=== PATIENT | female | born 1955 | race Caucasian/White ===

== ENCOUNTER 2020-12-18 06:53 | Observation (INO) ==
--- NOTE | 2020-12-03 14:43 | PAT Medication Instructions ---
Medication Instructions Date of Service December 03, 2020 Home Medications cetirizine [Zyrtec] 10 mg PO QAM diclofenac sodium [Voltaren] 2 g TOPICAL QID PRN folic acid 3 mg PO QAM golimumab [Simponi ARIA] 12.5 mg IV UD hydroxychloroquine 300 mg PO HS latanoprost 1 drp OPHTHALMIC (EYE) PM meloxicam 7.5 - 15 mg PO BID PRN methotrexate sodium [Methotrexate (Anti-Rheumatic)] See Rx Instructions .ROUTE .COMPLEX rosuvastatin 5 mg PO UD Continue as directed rosuvastatin 5 mg PO UD ASK your surgeon for instructions meloxicam 7.5 - 15 mg PO BID PRN ASK your prescriber and surgeon golimumab [Simponi ARIA] 12.5 mg IV UD hydroxychloroquine 300 mg PO HS methotrexate sodium [Methotrexate (Anti-Rheumatic)] See Rx Instructions .ROUTE .COMPLEX STOP taking 24 hours before surgery diclofenac sodium [Voltaren] 2 g TOPICAL QID PRN DO NOT take the morning of surgery cetirizine [Zyrtec] 10 mg PO QAM folic acid 3 mg PO QAM Take evening before surgery latanoprost 1 drp OPHTHALMIC (EYE) PM Other Notes If you have any questions please call us at [phone] or [phone] or [phone] or [phone]
--- NOTE | 2020-12-05 12:19 | Anesthesiology Consultation ---
Date of Service December 05, 2020 Assessment & Plan (1) Encounter for pre-operative examination: - COVID screening: Per assessment on 12/05: Travel screen negative, no known COVID-19 positive contacts or current COVID-19 related symptoms. Patient vaccinated. Surgeon arranging preop COVID testing. Awaiting results. - Cardiology office visit (10/30/20): "Despite her severe arthritis she remains physically active. She has been doing her elliptical service trainer 45 minutes a day. She has no anginal symptoms and no signs or symptoms of heart failure. I see no cardiac contraindication to proceeding on with the planned orthopedic procedure." Chart Review Chart Review: Acceptable Risk for Surgery (pending surgeon-ordered PCP clearance) and Patient seen in Pre Admission Testing Teaching & Discussion Pre-Anesthesia Teaching/Discussion Notes: Instructed NPO after midnight before surgery,except medications with 15 cc of water. Medication instructions provided according to the PAT guidelines. History Surgery Operation Date: 12/18/20 09:15 Proposed Procedures p Right Total Knee Arthroplasty - Tim Lawrence DO Height/Weight Height: 5 ft 5 in Weight: 79.4 kg Allergies Allergy/AdvReac Type Severity Reaction Status Date / Time No Known Allergies Allergy Verified 11/29/20 11:13 Medications Home Medications Medication Instructions Recorded Confirmed Last Taken cetirizine [Zyrtec] 10 mg PO QAM 11/29/20 11/29/20 Unknown diclofenac sodium [Voltaren] 2 g TOPICAL QID PRN 11/29/20 11/29/20 Unknown folic acid 3 mg PO QAM 11/29/20 11/29/20 Unknown golimumab [Simponi ARIA] 12.5 mg IV UD 11/29/20 11/29/20 Unknown hydroxychloroquine 300 mg PO HS 11/29/20 11/29/20 Unknown latanoprost 1 drp OPHTHALMIC (EYE) PM 11/29/20 11/29/20 Unknown meloxicam 7.5 - 15 mg PO BID PRN 11/29/20 11/29/20 Unknown methotrexate sodium [Methotrexate See Rx Instructions .ROUTE .COMPLEX 11/29/20 11/29/20 Unknown (Anti-Rheumatic)] rosuvastatin 5 mg PO UD 11/29/20 11/29/20 Unknown Past Medical History Medical History Hyperlipidemia Osteoarthritis Rheumatoid arthritis Hands Exercise / Class Metabolic Activity II 4-5 Yardwork/Stairs/Walk up hill (one FS (no CP, no SOB)) Past Surgical History Surgical History History of carpal tunnel surgery of right wrist History of facelift Hx of arthroscopy of right knee Hx of bilateral cataract extraction Hx of section Hx of colonoscopy Hx of detached retina repair left Hx of tonsillectomy Past Anesthesia History No Hx of Anesthesia Complications (except PONV x1) and No Family Hx of Anesthesia Complications History of PONV History of PONV (x1 single episode) and Hx of Motion Sickness (remote childhood hx) Social History Smoking Status: Never smoker Do You Dip or Chew Tobacco: No Hx Alcohol Use: No Hx Substance Use: No substance use type: does not use Review of Systems + snoring. No witnessed apnea events. Patient denies chest pain, shortness of breath, dyspnea on exertion, fever, chills, cough, wheezing, palpitations. Physical Exam Vital Signs VITALS BP 133/80 P 78 TEMP 98.3 SP02 98%RA RESP 16 PHYSICAL Full cervical extension range of motion. Full TMJ range of motion. TMD 3.5 finger breaths Mallampati Score 3 Dentition: intact Lungs: clear throughout to auscultation Cardiac: regular rate and rhythm, no murmurs noted Spine: normal Carotid arteries: negative bruit Extremities: no edema Lab Results Anesthesia Preop Results Results Anesthesia Widget: WBC 4.59 K/uL (4.8-10.8) L 12/05/20 Hgb 12.9 g/dL (12.0-16.0) 12/05/20 Hct 37.5 % (37-47) 12/05/20 Plt 221 K/uL (130-400) 12/05/20 Na 140 mmol/L (136-145) 12/05/20 K 4.1 mmol/L (3.5-5.1) 12/05/20 Cl 109 mmol/L (98-107) H 12/05/20 CO2 26 mmol/L (21-32) 12/05/20 BUN 20 mg/dl (7-18) H 12/05/20 Creat 0.63 mg/dl (0.6-1.2) 12/05/20 Glucose Level 102 mg/dl (70-99) H 12/05/20 PT 10.1 Seconds (9.0-12.0) 12/05/20 PTT 23.9 Seconds (21.0-31.0) 12/05/20 INR 1.0 (0.9-1.1) 12/05/20 HA1c 5.9 % (4.5-5.6) H 12/05/20 Urine Color Yellow 12/05/20 Urine Appearance Clear (Clear) 12/05/20 Urine pH 5.5 (4.5-7.5) 12/05/20 Urine Specific [place] 1.019 (1.000-1.030) 12/05/20 Urine Protein Negative (Negative) 12/05/20 Urine Glucose (UA) Negative (Negative) 12/05/20 Urine Ketones Negative (Negative) 12/05/20 Urine Blood Negative (Negative) 12/05/20 Urine Nitrite Negative (Negative) 12/05/20 Urine Bilirubin Negative (Negative) 12/05/20 Urine Urobilinogen Negative (Negative) 12/05/20 Urine Leukocyte Esterase Trace (Negative) H 12/05/20 Urine WBC (Auto) 1-5 /hpf (0-5) 12/05/20 Urine RBC (Auto) 0-4 /hpf (0-4) 12/05/20 Urine Hyaline Casts (Auto) 0 /lpf (0-5) 12/05/20 Urine Epithelial Cells (Auto) 10-20 /lpf (0-5) H 12/05/20 Urine Bacteria (Auto) Negative (Negative) 12/05/20 Blood Type A Negative 12/05/20 Antibody Screen NEGATIVE 12/05/20 Lab Comments: Preop testing to be forwarded to PCP for continuity of care. Testing Electrocardiogram Date: 10/30/20 Findings: + NSR @ (72) Chest X-Ray Date: 12/05/20 Findings: + NAD Echocardiogram Date: 10/30/20 EF 55%. Borderline LVH. Sclerotic changes involving aortic and mitral valve leaflets. Trace to at most mild NV/TI. No regional wall motion abnormalities. Stress Test Date: 06/25/17 Type: exercise Negative ECG stress test 112% MPHR. 12.8 METS. No chest pain associated with exertion. No cardiac arrhythmia precipitated by exercise.
--- NOTE | 2020-12-16 22:18 | History & Physical Report ---
Date of Service December 18, 2020 Assessment & Plan (1) Degenerative joint disease of knee, right: I have indicated the patient for right total knee replacement. The risks, benefits and complications of surgery were explained to the patient which include but not limited to infection, acute blood loss, DVT/PE, injury to nerves, vessels, bone, soft tissue, arthrofibrosis, chronic pain, failure of the prosthesis, knee dislocation, leg length discrepancy, need for additional surgery, cardiac and pulmonary events and . The patient wished to proceed with surgery and informed consent was obtained at this time. We will plan for 81mg ASA BID post-operatively for DVT prophylaxis. Upon discharge the patient will be discharged home with home health services. Appropriate clearances by PCP, cardiology and rheum recs were obtained. History of Present Illness Chief Complaint: Right knee pain/DJD Primary Care Provider: Huey Noble The patient is a 65 year old female who presents with complaints of severe right knee pain and DJD. The patient has failed outpatient conservative treatments to this point which included NSAIDs, IA corticosteroid and DAMON injections, home exercise/walking program. The patient's pain and limited function have progressed to the point where they severely hinder their activities of daily living and they no longer tolerate exercise programs. They are requesting to proceed with total knee replacement surgery. Allergies Allergy/AdvReac Type Severity Reaction Status Date / Time No Known Allergies Allergy Verified 12/18/20 07:11 Home Medications Medication Instructions Recorded Confirmed Type cetirizine [Zyrtec] 10 mg PO QAM 11/29/20 12/18/20 History diclofenac sodium [Voltaren] 2 g TOPICAL QID PRN 11/29/20 12/18/20 History folic acid 3 mg PO QAM 11/29/20 12/18/20 History golimumab [Simponi ARIA] 12.5 mg IV UD 11/29/20 12/18/20 History hydroxychloroquine 300 mg PO HS 11/29/20 12/18/20 History latanoprost 1 drp OPHTHALMIC (EYE) PM 11/29/20 12/18/20 History meloxicam 7.5 - 15 mg PO BID PRN 11/29/20 12/18/20 History methotrexate sodium [Methotrexate See Rx Instructions .ROUTE .COMPLEX 11/29/20 12/18/20 History (Anti-Rheumatic)] rosuvastatin 5 mg PO UD 11/29/20 12/18/20 History multivitamin 1 tab PO DAILY 12/18/20 12/18/20 History omega-3 fatty acids-vitamin E 1 cap PO DAILY 12/18/20 12/18/20 History [Fish Oil] Past Med/Surg History Medical History Hyperlipidemia Osteoarthritis Rheumatoid arthritis Hands Surgical History History of carpal tunnel surgery of right wrist History of facelift Hx of arthroscopy of right knee Hx of bilateral cataract extraction Hx of section Hx of colonoscopy Hx of detached retina repair left Hx of tonsillectomy Social History Smoking Status: Never smoker Second Hand Exposure: No; Do You Dip or Chew Tobacco: No; Tobacco Cessation Education Requested by Patient: No Hx Alcohol Use: No Hx Substance Use: No Preferred Language: Mongolian Communication Ability: Effective Vehicle Service Attendant Required: No Beliefs That Will Affect Care: None Current Living Situation: Spouse Other Information That Helps Us Care for You: No Feels Safe at Home: Yes Safety Concerns: Feels Safe At This Time Assistive Devices: Glasses Review of Systems Review of Systems: All systems reviewed & are unremarkable except as noted in HPI & below Constitutional: as per Subjective / HPI Physical Exam Physical Exam: RLE NVSI +EHL/FHL/TA/GS SILT grossly, +2 DP pulse, compartments soft NT, limited painful ROM of the knee, 0-115 degrees of flexion, +crepitus. Constitutional: WD/WN, vitals as above Eyes: PERRL, conjunctivae normal, anicteric sclerae ENMT: external ear and nose normal, oropharynx normal Neck: trachea midline, no thyromegaly Respiratory: normal respiratory effort, lungs clear to auscultation Cardiovascular: RRR, no murmur, no edema Gastrointestinal (Abdomen): normal bowel sounds, soft, nontender, no hepatosplenomegaly Musculoskeletal: no cyanosis or clubbing, extremities motor strength 5/5 Skin: no rashes, warm and dry Neurologic: patellar DTR's 2+ bilat, sensation intact Psychiatric: A+Ox3, euthymic affect Lymphatic: no cervical or axillary lymphadenopathy Results & Data Results & Data ([place]) Diagnostic Findings Multiple views of the knee demonstrates severe tricompartmental DJD with complete loss of the medial joint space. +osteophytes, +sclerosis, +subchondral cysts.
[~2020-12-18 06:53] MED LIST: ACETAMINOPHEN 500 MG TAB PO SCH; BUPIVACAINE 0.25% 30 ML VIAL ONE; BUPIVACAINE 0.5 % 5 MG/1 ML PF 10ML VIAL ONE; CeleBREX 200 MG CAP PO SCH; EPINEPHrine INJ 1 MG/ML AMP ONE; FAMOTIDINE 20 MG TAB PO SCH; GENERAL ORDER PROBLEM SCH; LR 500ML BOLUS, THEN 15ML/HR IV SCH; METOCLOPRAMIDE HCL 10 MG TABLET PO SCH; PROPOFOL IV EMULSION 10 MG/ML 20 ML VIAL IV ONE; ROPIVACAINE 0.5% HCL/PF 150 MG, BUPIVACAINE 0.75% MPF 20 ML, EPINEPHrine 30MG/30ML (OR ... INSTIL SCH; TRANEXAMIC ACID 1,000 MG **IV Intra-op IV SCH; TRANEXAMIC ACID 1,000 MG **IV Pre-op IV SCH; ceFAZolin 1000MG 1,000 MG/7.5 ML SYR IV SCH; dexAMETHasone 4 MG TAB PO SCH
[2020-12-18] MEDS ORDERED: PROPOFOL IV EMULSION 10 MG/ML 20 ML VIAL IV ONE ×2 (08:40→10:22)
[2020-12-18] MEDS ORDERED: fentaNYL citrate 100 MCG/2 ML VIAL ONE (08:40)
[2020-12-18] MEDS ORDERED: LIDOCAINE 2% 20 MG/ML 5 ML SYR IV ONE (08:40)
[2020-12-18] MEDS ORDERED: MIDAZOLAM HCL 1 MG/ML 2ML VIAL ONE ×2 (08:40→09:56)
[2020-12-18] MEDS ORDERED: GLYCOPYRROLATE 0.2 MG/ML VIAL ONE (08:40)
[2020-12-18] MEDS ORDERED: ONDANSETRON INJ 2 MG/ML 2 ML VIAL IV PRN ×2 (08:45→13:16)
[2020-12-18] MEDS ORDERED: fentaNYL citrate 100 MCG/2 ML VIAL IV PRN (08:45)
[2020-12-18] MEDS ORDERED: ATROPINE SULFATE 0.1 MG/ML 10ML SYR IV PRN (08:45)
[2020-12-18] MEDS ORDERED: ePHEDrine sulfate 50 MG/ML AMP IV PRN (08:45)
[2020-12-18] MEDS ORDERED: HYDROmorphone INJ 2 MG/ML SYR/VIAL IV PRN (08:45)
--- NOTE | 2020-12-18 09:12 | History & Physical Bridge Note ---
Date of Service December 18, 2020 History & Physical Bridge Note I have examined the patient, reviewed the History & Physical and in the interval since the performance of the History & Physical I have noted the following changes of clinical significance: no changes noted
[2020-12-18] MEDS ORDERED: SUGAMMADEX SODIUM 200 MG/2 ML VIAL IV ONE (10:19)
--- NOTE | 2020-12-18 11:05 | Post Operative Brief Note ---
Immediate Post Op Note v1 Date of Surgery December 18, 2020 Pre & Post Diagnosis Operation Date: 12/18/20 09:35 Pre-Op Diagnosis: Degenerative Joint Disease, Right Knee Post-Op Diagnosis: Degenerative Joint Disease, Right Knee I identified the patient and participated in the time-out.: Yes Procedure Operation Date: 12/18/20 09:35 Actual Procedures p Right Total Knee Arthroplasty(Right) - Tim Lawrence DO Surgeon Tim Lawrence DO Automobile Glass Technician Nicolas Chung Estimated Blood Loss 50 Findings Consistent with Post-Op Diagnosis Fluids See anesthesia report Specimens Proximal tibia and distal femur bone fragment Anesthesia Type Spinal MAC Complications none Disposition Disposition: Recovery Room Overlapping Procedure I was present for: the critical portions of procedure. I was immediately available: during the entire case. Back up surgeon: was not required during procedure.
--- NOTE | 2020-12-18 11:07 | Operative Report ---
Post Operative Report Pre & Post Diagnosis Operation Date: 12/18/20 09:35 Pre-Op Diagnosis: Degenerative Joint Disease, Right Knee Post-Op Diagnosis: Degenerative Joint Disease, Right Knee I identified the patient and participated in the time-out.: Yes Procedure Operation Date: 12/18/20 09:35 Actual Procedures p Right Total Knee Arthroplasty(Right) - Tim Lawrence DO Surgeon Tim Lawrence DO Administrative Representative Nicolas Chung Estimated Blood Loss 50 Findings Consistent with Post-Op Diagnosis Fluids See anesthesia report Specimens Proximal tibia and distal femur bone fragments Anesthesia Type Spinal MAC Complications none Disposition Disposition: Recovery Room Indications The patient is a 65-year-old female presents with long history of severe right knee tricompartmental DJD and failed outpatient conservative treatments including NSAIDs, bracing, injections and home walking/exercise program. The patient's symptoms have progressed to the point where it has been difficult to perform normal activities of daily living. I have indicated the patient for a right total knee arthroplasty, the risks and benefits and complications of the procedure include but are not limited to infection bleeding damage to bone, nerves, vessels, surrounding soft tissue, blood clots, loss of function, leg length discrepancy, dislocation, failure of the components, need for additional surgery and . The patient wished to proceed with surgery at this time and informed consent was obtained. Appropriate clearances were obtained. Description of Procedure COMPONENTS USED: Brandan persona knee system: Femur size 7 narrow, Tibia size E, Tibial articulating surface 13 PS, Patella 29 mm Following induction of spinal anesthesia, a tourniquet was applied to the proximal aspect of the thigh and the patient's right leg was prepped and draped in the usual sterile manner. A timeout was performed, patient identified and site xochitl confirmed. Appropriate pre-operative IV antibiotics were given. The limb was exsanguinated with an Esmarch bandage and tourniquet was inflated to 300 mmHg. A longitudinal midline incision was made over the anterior knee. Subcutaneous tissue was sharply dissected down to fascia. Electrocautery was used for hemostasis. Next a parapatellar arthrotomy was performed. Patella was everted and the knee was flexed. A Corral retractor was used to expose the synovium above on the anterior aspect of the femur and removed down to bone. Next, the anterior fat pad was removed to aid in visualization. The medial face of the tibia was cleared of soft tissue first with a Bovie and a sue elevator. This tissue was retracted posteriorly using a blunt Hohmann. Next, the extra-medullary tibial cutting guide was placed to the anterior aspect of the tibia. The tibia resection level was set taking 2mm from the defective tibial condyle. Resection depth was once again confirmed with marcin wing. The medial and lateral collateral ligament was protected with two Hohmann retractors. The tibia guide was removed and proximal tibial bone fragment removed utilizing straight osteotome, electrocautery and Cassi. Next, the distal femur intramedullary canal was accessed utilizing the step drill. The intramedullary distal femur cutting guide was placed into the canal and pinned into place. The distal femur was cut on the 5 degree setting. Next the cutting guide was removed and the femur was sized. Care was taken to ensure appropriate clothes wringer all rotation and 3 degree holes were drilled. A size 7 4-in-1 cutting block was placed on the distal end of the femur and secured into place with two short headed screws. Two bent Hohmann retractors were placed to protect the medial and lateral collateral ligaments. The oscillating saw was used to cut anterior, posterior, anterior chamfer and posterior chamfer. The four and one cutting block was removed and bone fragments excised. Laminar scalp treatment operator was placed laterally and the ACL and PCL were removed followed by the medial meniscus and posterior medial osteophytes. Aquamantys was utilized for any posterior medial bleeders and Orthomix injected into the posterior medial capsule. A laminar scalp treatment operator was then placed in the medial compartment and the lateral meniscus and posterior osteophytes were removed. Aquamantys was utilized for any posterior lateral bleeders and Orthomix injected into the posterior lateral capsule. Next, drop donna and spacer block were placed with the leg in flexion and extension to assess alignment and flexion/extension gaps. Next, the proximal tibia was assessed and two bent Hohmans were placed medial and lateral to aid in visualization. The appropriate tibia size and rotation was selected and a size E tibial plate was pinned into place with appropriate rotation. Preparation of the tibia was completed utilizing the matching tibial drill and broach. I then turned my attention back to the distal femur in a trial femoral component was impacted into place. Appropriate femoral width was assessed and selected. Next the femur PS box cut guide was placed and cut made with the reciprocal saw and the PS box provisional placed. A trial size 12 PS tibia articular tray was placed and varus-valgus balance assessed in 0 degrees of extension and 30, 60 and 90 degrees of flexion. A final tibial articular surface size 13 PS was chosen. Assess was gained to the patella and caliper utilized to measure width. The patella reamer was utilized and remaining bone removed with oscillating saw. A size 29 mm patella button was selected and the patella pegs drilled. Trial patella button was placed and tracking was assessed. The knee was found to be well balanced, well aligned with excellent patella tracking. The trials were removed and final components were obtained and assembled. The knee was irrigated copiously with sterile saline solution mixed with bacitracin. Access to the proximal tibia was once again obtained utilizing to the Hohmans and the proximal tibia and distal femur were dried with lap sponges. The final components were cemented into place and all excess cement was removed. A trial tibial articular surface was placed while cemented hardened. Knee stability was once again assessed and the final component inserted. A Betadine soak was performed. After 3 minutes, the knee was once more irrigated with copious sterile saline solution with bacitracin. The knee was injected with the remaining Orthomix which includes a combination of Ropivicaine 0.5% 150mg, Bupivicaine 0.5%/Epinephrine 1:200,000 30ml, Toradol 30mg, Dexamethasone 4mg, Ketamine 10mg, Clonidine 100mcg and NSS 30ml solution. The capsulotomy was closed with #1 Vicryl followed by subcutaneous closure with 2-0 Vicryl suture and the skin was closed with vitor. A sterile dry dressing was applied which included mehran incisional VAC, web roll and Saulo wrap. Tourniquet was deflated at 77 minutes. The patient tolerated the procedure well and was taken to the PACU in stable condition. Due to the complex nature of the procedure, the entire surgery was performed with the operational assistance of Nicolas Chung PA-C. The portfolio assistant, under direct supervision, was involved in the actual performance of all aspects of the surgical procedure including patient positioning, hemostasis, tissue retraction, instrument management and wound closure. I attest to the content of the Intraoperative Record and any orders documented therein. Any exceptions are noted below.
--- NOTE | 2020-12-18 12:07 | XRay Report ---
RIGHT KNEE 2 VIEWS History: Right total knee arthroplasty. Degenerative arthritis. Postop. FINDINGS: The patient is status post a right total knee arthroplasty. The hardware is intact. No frac ture or dislocation. Skin vitor are in place. IMPRESSION: Right total knee arthroplasty. No evidence for hardware complication. ACT 112: Negative or not required by law. Electronically signed by: Qasim Fry M.D. 12/18/2020 12:05 PM
--- NOTE | 2020-12-18 12:33 | Anesthesiology Progress Note ---
Date of Service December 18, 2020 Anesthesia Post Procedure Vital Signs Vital Signs: Temp Pulse Pulse Resp BP Pulse Ox 12/18/20 12:25 79 14 134/70 97 12/18/20 12:15 77 14 135/67 97 12/18/20 12:05 36.7 C 81 20 134/61 96 12/18/20 11:55 77 21 137/79 97 12/18/20 11:45 77 12 130/80 99 12/18/20 11:38 36.1 C L 79 14 121/77 99 12/18/20 07:15 36.6 C 81 20 146/96 H 98 Pain Intensity Generalized: Pain Intensity: 2 Transfer of Care Handoff Completed per policy Notes Mental Status: alert / awake / arousable and participated in evaluation Patient Amnestic to Procedure: Yes Nausea / Vomiting: adequately controlled Pain: adequately controlled Airway Patency, RR, SpO2: stable & adequate BP & HR: stable & adequate Hydration State: stable & adequate Anesthetic Complications: no major complications apparent and Pt Satisfied with anesthetic care
[2020-12-18] MEDS ORDERED: bisacodyL 10 MG SUPP PR PRN (13:16)
[2020-12-18] MEDS ORDERED: METOCLOPRAMIDE HCL INJ 5 MG/ML 2 ML VIAL IV PRN (13:16)
[2020-12-18] MEDS ORDERED: MAGNESIUM HYDROXIDE SUSP 30 ML UDC PO PRN (13:16)
[2020-12-18] MEDS ORDERED: diphenhydrAMINE Capsule 25 MG CAP PO PRN (13:16)
[2020-12-18] MEDS ORDERED: NALOXONE HCL 0.4 MG/1 ML VIAL/CARP IV PRN (13:16)
[2020-12-18] MEDS ORDERED: HYDROmorphone INJ 0.5 MG/0.5 ML SYR IV PRN (13:16)
[2020-12-18] MEDS: SODIUM CHLORIDE 0.9% 1000ML 1,000 ML IV SCH (14:14)
[2020-12-18] MEDS: ACETAMINOPHEN 500 MG TAB PO SCH ×2 (14:14→21:00)
[2020-12-18] MEDS: KETOROLAC TROMETHAMINE 15 MG/ML VIAL IV SCH ×2 (14:15→20:26)
--- NOTE | 2020-12-18 16:02 | Orthopedic Progress Note ---
Date of Service December 18, 2020 Assessment & Plan (1) Degenerative joint disease of knee, right: s/p R TKA -ancef x 24 -DVT ppx: SCDs, TEDs, 81mg ASA BID -WBAT RLE -PT/OT -PO XR demonstrates well aligned well fixed prothesis without fracture/dislocation -am labs -DC planning Admission and Anticipated Discharge Date Admission Date: December 18, 2020 Subjective Post Operative Progress Note Patient seen sitting up in bed, comfortable, denies complaints, pain well controlled, no acute issues. Review of Systems Review of Systems: All systems reviewed & are unremarkable except as noted in HPI & below Constitutional: as per Subjective / HPI Physical Exam Physical Exam: RLE PE limited secondary to spinal, +2 DP pulse, compartments soft NT, dressing CDI. Constitutional: WD/WN, vitals as above Eyes: PERRL, conjunctivae normal, anicteric sclerae ENMT: external ear and nose normal, oropharynx normal Neck: trachea midline, no thyromegaly Respiratory: normal respiratory effort, lungs clear to auscultation Cardiovascular: RRR, no murmur, no edema Gastrointestinal (Abdomen): normal bowel sounds, soft, nontender, no hepatosplenomegaly Musculoskeletal: no cyanosis or clubbing, extremities motor strength 5/5 Skin: no rashes, warm and dry Neurologic: patellar DTR's 2+ bilat, sensation intact Psychiatric: A+Ox3, euthymic affect Lymphatic: no cervical or axillary lymphadenopathy Results & Data ([facility]) Vital Signs (Past 12 Hours) Vital Signs Temp Pulse Pulse Resp BP Pulse Ox 12/18/20 14:56 36.7 C 88 16 132/71 96 12/18/20 14:05 36.7 C 88 16 134/78 94 12/18/20 13:30 36.5 C 96 H 16 144/77 H 94 12/18/20 12:45 87 18 136/77 95 12/18/20 12:35 84 14 133/73 95 12/18/20 12:25 79 14 134/70 97 12/18/20 12:15 77 14 135/67 97 12/18/20 12:05 36.7 C 81 20 134/61 96 12/18/20 11:55 77 21 137/79 97 12/18/20 11:45 77 12 130/80 99 12/18/20 11:38 36.1 C L 79 14 121/77 99 12/18/20 07:15 36.6 C 81 20 146/96 H 98
[2020-12-18] MEDS: ceFAZolin 2000MG 2,000 MG/15 ML SYR IV SCH (18:13)
[2020-12-18] MEDS: DOCUSATE SODIUM 100 MG CAP PO SCH (20:30)
[2020-12-18] MEDS ORDERED: HYDROXYCHLOROQUINE SULFATE 200 MG TAB PO SCH (21:00)
[2020-12-18] MEDS ORDERED: SENNA 8.6 MG TAB PO SCH (21:00)
[2020-12-19] MEDS: SODIUM CHLORIDE 0.9% 1000ML 1,000 ML IV SCH (00:33)
[2020-12-19] MEDS: KETOROLAC TROMETHAMINE 15 MG/ML VIAL IV SCH ×2 (01:44→08:07)
[2020-12-19] MEDS: ceFAZolin 2000MG 2,000 MG/15 ML SYR IV SCH (01:45)
[2020-12-19 06:08] LABS: Hematocrit (blood only) 32.9 % (37-47); Hemoglobin 11.2 g/dL (12.0-16.0); Mean Corpuscular Hemoglobin 32.2 pg (25-34); Mean Corpuscular Volume 94.5 fL (80-100); Mean Platelet Volume 10.2 fL (7.4-10.4); Platelet Count 188 K/uL (130-400); RDW Coefficient of Variation 13.2 % (11.5-14.5); RDW Standard Deviation 45.5 fL (36.4-46.3); Red Blood Count 3.48 M/uL (4.2-5.4); White Blood Count 10.58 K/uL (4.8-10.8)
[2020-12-19] MEDS: ACETAMINOPHEN 500 MG TAB PO SCH ×2 (06:12→15:58)
[2020-12-19 06:42] LABS: BUN Creatinine Ratio 32.4 (10-20); Calcium 8.5 mg/dl (8.5-10.1); Creatinine Clr Calc Pharmacy 91.2 ml/min; Est GFR (African American) 108.3 ml/min; Est GFR (Non-African American) 93.5 ml/min; Potassium 3.8 mmol/L (3.5-5.1)
[2020-12-19] MEDS: oxyCODONE HCL IR 5 MG TAB (IMMEDIATE RELEASE) PO PRN ×2 (08:14→15:58)
--- NOTE | 2020-12-19 08:14 | Orthopedic Progress Note ---
Date of Service December 19, 2020 Assessment & Plan (1) Degenerative joint disease of knee, right: s/p R TKA POD#1 -ancef x 24 -DVT ppx: SCDs, TEDs, 81mg ASA BID -WBAT RLE -PT/OT -PO XR demonstrates well aligned well fixed prothesis without fracture/dislocation -am labs - as above, hgb 11.2 -DC planning - home with Admission and Anticipated Discharge Date Admission Date: December 18, 2020 Subjective Post Operative Progress Note Patient seen sitting up in bed, comfortable, denies complaints, pain well controlled, no acute issues. Denies F/C/N/V/SOB/CP. Review of Systems Review of Systems: All systems reviewed & are unremarkable except as noted in HPI & below Constitutional: as per Subjective / HPI Physical Exam Physical Exam: RLE NVSI +EHL/FHL/TA/GS SILT grossly, +2 DP pulse, compartments soft NT, dressing cdi. Constitutional: WD/WN, vitals as above Results & Data ([facility]) Vital Signs (Past 12 Hours) Vital Signs Temp Pulse Resp BP Pulse Ox 12/18/20 22:03 36.8 C 88 16 133/78 95 Laboratory Results 12/19/20 12/19/20 12/18/20 Range/Units 05:12 05:12 07:29 WBC 10.58 (4.8-10.8) K/uL RBC 3.48 L (4.2-5.4) M/uL Hgb 11.2 L (12.0-16.0) g/dL Hct 32.9 L (37-47) % MCV 94.5 (80-100) fL MCH 32.2 (25-34) pg MCHC 34.0 (32-36) g/dL RDW Std Deviation 45.5 (36.4-46.3) fL RDW Coeff of Tracee 13.2 (11.5-14.5) % Plt Count 188 (130-400) K/uL MPV 10.2 (7.4-10.4) fL Sodium 143 (136-145) mmol/L Potassium 3.8 (3.5-5.1) mmol/L Chloride 114 H (98-107) mmol/L Carbon Dioxide 27 (21-32) mmol/L Anion Gap 2.0 L (3-11) BUN 20 H (7-18) mg/dl Creatinine 0.63 (0.6-1.2) mg/dl Est Cr Clr Drug Dosing 91.2 ml/min Est GFR ( Amer) 108.3 ml/min Est GFR (Non-Af Amer) 93.5 ml/min BUN/Creatinine Ratio 32.4 H (10-20) Glucose 120 H (70-99) mg/dl Calcium 8.5 (8.5-10.1) mg/dl Blood Type A Negative Antibody Screen NEGATIVE
[2020-12-19] MEDS: DOCUSATE SODIUM 100 MG CAP PO SCH (08:16)
[2020-12-19] MEDS ORDERED: ROSUVASTATIN CALCIUM 5 MG TAB PO SCH (09:00)
[2020-12-19] MEDS ORDERED: MULTIVITAMIN TAB PO SCH (09:00)
[2020-12-19] MEDS ORDERED: ASPIRIN 81 MG ECTAB PO SCH (09:00)
[2020-12-19] MEDS ORDERED: CeleBREX 200 MG CAP PO SCH (21:00)
--- NOTE | 2020-12-22 13:48 | Discharge Summary ---
Date of Service December 22, 2020 Admission HPI Per Admitting Provider The patient is a 65 year old female who presents with complaints of severe right knee pain and DJD. The patient has failed outpatient conservative treatments to this point which included NSAIDs, IA corticosteroid and DAMON injections, home exercise/walking program. The patient's pain and limited function have progressed to the point where they severely hinder their activities of daily living and they no longer tolerate exercise programs. They are requesting to proceed with total knee replacement surgery. Principal Diagnosis Right total knee replacement Discharge Exam RLE NVSI +EHL/FHL/TA/GS SILT grossly, +2 DP pulse, compartments soft NT, dressing cdi. Constitutional WD/WN, vitals as above Discharge Data Allergies Allergy/AdvReac Type Severity Reaction Status Date / Time No Known Allergies Allergy Verified 12/18/20 07:11 Procedures Performed Operation Date: 12/18/20 09:35 Actual Procedures p Right Total Knee Arthroplasty(Right) - Tim Lawrence DO Ordered Studies 12/18/20 05:00 US - OR guided needle placemen Routine Hospital Course (1) Degenerative joint disease of knee, right: Hospital Course: On 12/18/20 the patient was taken to the operating room, adequate anesthesia administered and underwent a right total knee arthroplasty. The patient tolerated the procedure well and was taken to the PACU in stable condition. Post-operatively the patient was started on a DVT ppx medication and given appropriate IV antibiotics. Consults were placed to physical therapy, occupational therapy and case management. On POD#1, the patient did well overnight and their pain was well controlled. Labs were drawn and the Hgb was 11.2. The patient progressed well with PT. Dressings were changed at this time and the incision was clean, dry and intact. The patients hospital stay was relatively uneventful and they were deemed stable by the orthopedic team and consultants to be discharged home with on 12/19/20. Discharge Instructions: Upon discharge the patient may weight bear as tolerates through their operative extremity. They were instructed to keep the incision clean and dry at all times. The patient may shower but should not submerge the incision, avoid bathing, pools and hot tubs. The patient was given a script for pain medication and should take as instructed. The patient was given a script for DVT ppx 81mg ASA BID and should take as directed. The patient was instructed to not drive or travel for long distances until cleared to do so. If the patient develops any symptoms of fevers, chills, nausea, vomiting, increased redness, swelling, pain or drainage from the surgical site, they should notify the office and/or proceed to the nearest emergency room. The patient should follow up in 10-14 days after surgery for their routine post-operative follow-up appointment and should call the office, to confirm the date and time. s/p R TKA POD#1 -ancef x 24 -DVT ppx: SCDs, TEDs, 81mg ASA BID -WBAT RLE -PT/OT -PO XR demonstrates well aligned well fixed prothesis without fracture/dislocation -am labs - as above, hgb 11.2 -DC planning - home with HH Total Time Total Time Spent Total Time Spent (In Minutes): 30 Discharge Plan Discharge Items Patient Disposition: Home - Home Health Services Reason For Visit: Ostearthritis, Right Knee Discharge Diagnosis: Right total knee replacement Condition on Discharge: Good Activity: Per Instructions section Lifting: Wait until after follow-up appointment Bathing: Keep incision dry Bathing Comment: No bathing, pools or hot tubs. Sexual Activity: Wait until after follow-up appointment Exercise/Sports: Wait until after follow-up appointment Driving/Machine Use: No driving. Weightbearing: Full weightbearing Non-emergency contact: Primary Care Provider and Surgeon Call non-emergency contact if: you have any medication questions, your symptoms worsen, your pain is not controlled, your pain is worsening, your pain is un usual for you, your pain is concerning for you, you have a fever, your temperature is above 101, your wound has increased redness, your wound has increased drainage and your wound pain has increased Follow-up/Referrals: PCP,NO [Primary Care Provider] - Diet: Regular Addtl Attending Provider Instructions: ACTIVITY RECOMMENDATIONS: SELF CARE INSTRUCTIONS AFTER TOTAL KNEE REPLACEMENT A. You may need to continue a physical therapy program after discharge from the hospital. There are several options available to you. Your doctor will assist you in selecting the best one for you. 1. An out-patient facility 2 to 3 times a week for therapy or home therapy. 2. Continue working on all exercises taught to you in the hospital. Your goals should be to increase bending of your knee to 90 degrees and beyond and to fully straighten your knee. B. You may progress at your own pace from walking with a walker or crutches to a cane; then to no assistive devices. C. Make walking a part of your daily routine. Be up as much as comfortable with rest periods throughout the day. Rest with leg elevation is very important. Use the ice wrap frequently for the first 3-4 weeks. D. There are no restrictions on activities. You may ride in a car, shop, participate in flat cutter and all social activities. E. Wear the long elastic stockings (FLORENCIA hose) 20 hours a day for 2 weeks after surgery. They can be removed several times a day for laundering and for a bath. F. You may shower, no tub baths until cleared by your doctor. SPECIAL CARE INSTRUCTIONS: VERY IMPORTANT TO READ AND REVIEW A. There are a few signs you need to watch for after you are home. Call [facility] if you notice any of the followin. Increased severe knee pain. Some pain is expected especially when you exercise. 2. Increased swelling in your leg or knee; pain or swelling of the calf muscle in either lower leg. 3. Any fluid drainage from the incision. 4. Shortness of breath or chest pain. B. Please call [facility] at if you have any concerns or questions about your operation or recovery. The doctor or his nurse will return your call promptly. C. You must take antibiotics before dental work, bladder, bowel or other surgery. Your doctor will provide you with a permanent care to carry describing this precaution. IMPORTANT: * REMEMBER TO TAKE ASPIRIN, 81 MG, TWICE DAILY FOR 4 WEEKS UNLESS OTHERWISE DIRECTED. THIS IS YOUR BLOOD THINNER. * HIGH RISK PATIENTS MAY BE PRESCRIBED A STRONGER BLOOD THINNER. THIS WILL BE PROVIDED AT DISCHARGE. * CALL IF INCREASED PAIN, REDNESS, DRAINAGE OR FEVER GREATER THAT 101. * WEAR FLORENCIA HOSE 20 HOURS PER DAY FOR 2 WEEKS. *ANDREA incisional vac is a special dressing covering your incision. This dressing provides a sterile dry environment while you are healing. The dressing is to be left in place for 7 days post-operatively. Your home nurse or surgeon will remove. If you develop any redness or blisters or have any questions notify your surgeon immediately. FOLLOW UP VISIT: If appointment is not already scheduled: Please call [facility] to make a follow-up appointment for 2 weeks after your surgery at . Pending Studies at Discharge: No Stand-Alone Forms: My [facility]uso, Opioid Pain Management, Work/School Release, Smoking Cessation Medications and DC Order Prescriptions: New acetaminophen 500 mg Tablet 1,000 mg PO Q8 PRN (Reason: fever or pain) Qty: 90 RF: 0 celecoxib [Celebrex] 200 mg Capsule 200 mg PO BID PRN (Reason: pain/inflammation) Qty: 30 RF: 0 oxycodone 5 mg Tablet 5 mg PO Q6H MDD 4 PRN (Reason: pain) Qty: 30 RF: 0 sennosides [Senokot] 8.6 mg Tablet 17.2 mg PO HS PRN (Reason: constipation) Qty: 30 RF: 0 aspirin 81 mg Tablet,Delayed Release (Dr/Ec) 81 mg PO BID Qty: 56 RF: 0 Continued latanoprost 0.005 % Drops 1 drp OPHTHALMIC (EYE) PM RF: 0 cetirizine [Zyrtec] 10 mg Tablet 10 mg PO QAM RF: 0 folic acid 1 mg Tablet 3 mg PO QAM RF: 0 diclofenac sodium 1 % Gel 2 g TOPICAL QID PRN (Reason: Pain) RF: 0 Simponi ARIA 12.5 mg/mL Solution 12.5 mg IV UD RF: 0 rosuvastatin 5 mg Tablet 5 mg PO UD RF: 0 multivitamin Tablet 1 tab PO DAILY RF: 0 omega-3 fatty acids-vitamin E 1,000 mg Capsule 1 cap PO DAILY RF: 0 Discontinued meloxicam 7.5 mg Tablet 7.5 - 15 mg PO BID PRN (Reason: Pain) RF: 0 methotrexate sodium [Methotrexate (Anti-Rheumatic)] 2.5 mg Tablet See Rx Instructions .ROUTE .COMPLEX RF: 0 hydroxychloroquine 200 mg Tablet 300 mg PO HS RF: 0 Discharge Orders: Discharge Order (Routine); Ordered 12/19/20 Ordered By: Tim Reyes/Other Patient Handouts: Post-Op Tips: Knee, Preventing Deep Vein Thrombosis Admission Data Admit Date/Time: 12/18/20 11:51 Attending Provider: Tim Lawrence Admit Provider: Tim Lawrence Primary Care Provider: PCP,NO Other Interventions: Discharge Summary Assessment (RN) Last Done: 12/19/20 15:06
== END 2020-12-19 16:17 | disposition home health service (06) ==
LOC: 3N 06:53 → ASU 06:53